=== PATIENT | male | born 1970 | race Caucasian/White ===

== ENCOUNTER → 2019-10-12 10:13 | Outpatient (BNVA) | payer OTHER, SELFPAY | PROVIDERS: Family Provider Nurse Practitioner Family; PCP Registered Nurse; Visit Provider Registered Nurse | DX: Z00.00 Encounter for general adult medical examination without abnormal findings (principal); Z13.220 Encounter for screening for lipoid disorders; Z12.11 Encounter for screening for malignant neoplasm of colon; E03.9 Hypothyroidism, unspecified; E07.9 Disorder of thyroid, unspecified | CPT/HCPCS: 36415; 80053; 80061; 84443; 85025 ==

== ENCOUNTER 2022-08-29 14:31 | Emergency (ER) | payer OTHER, SELFPAY ==
[2022-08-29 14:35] VITALS: BP 148/89; PULSE 73; RESP 16; TEMP 36.3; O2SAT 99
--- NOTE | 2022-08-29 15:30 | CTR_ITS ---
PROCEDURE INFORMATION: Exam: CT Head Without Contrast Exam date and time: 08/29/2022 3:37 PM Age: 51 years old Clinical indication: Weakness, extremity; Right; Additional info: Right-sided weakness, intermittent TECHNIQUE: Imaging protocol: Computed tomography of the head without contrast. Radiation optimization: All CT scans at this facility use at least one of these dose optimization techniques: automated exposure control; mA and/or kV adjustment per patient size (includes targeted exams where dose is matched to clinical indication); or iterative reconstruction. COMPARISON: No relevant prior studies available. RADIATION DOSE METRICS: Total DLP (mGy-cm): 1133.98 FINDINGS: Brain: Normal. No hemorrhage. Unremarkable white matter. No mass effect. Cerebral ventricles: No ventriculomegaly. Paranasal sinuses: There is mild ethmoid sinus disease. Mastoid air cells: Visualized mastoid air cells are well aerated. Bones/joints: Unremarkable. No acute fracture. Soft tissues: Unremarkable. CT/CT head wo con* [id number] IMPRESSION: There are no acute concerning abnormalities.
--- NOTE | 2022-08-29 15:30 | ED_ITS ---
HPI - Neuro Symptoms/Deficit General: Chief Complaint: Neuro Symptoms/Deficit Stated Complaint: Weakness in right side of body Time Seen by Provider: 08/29/22 15:23 Source: patient Mode of arrival: ambulatory History of Present Illness: 51-year-old male presents emergency room complaining of weakness on the right side of his body. States he had an episode yesterday that lasted about 3 minutes and then another episode today. By time he arrives here all of his symptoms have resolved he generally feels little bit weak and unsteady on his feet he is using a walking stick that he normally does not use. He has not had any chest pain. No recent head trauma is not on anticoagulants. He reports his right arm and leg and face were very weak with both of these episodes both were brief and resolved spontaneously. Onset (ago): day(s) (1) Location: right face, right arm and right leg Severity: moderate Quality: weak, numb and tingling Relieving factors: none Exacerbating factors: none Context: sudden onset Associated symptoms: Reports tingling; Deny chest pain, cough, diaphoresis, fevers/chills, headache(s), anorexia, malaise, nausea, seizures, short of breath, syncope, vertigo, vomiting or wea kness Treatments Prior to Arrival: none Review of Systems Const: Denies: fever(s), chills, fatigue, malaise or diaphoresis ENMT: Denies: throat pain, ear or mastoid pain, nasal discharge or nasal congestion Card: Denies: chest pain or syncope Resp: Denies: dyspnea, productive cough or non-productive cough GI: Denies: abdominal pain, nausea or vomiting : Denies: flank pain, dysuria, urinary frequency or urinary urgency Skin/Breast: Denies: rash or pruritus Neuro: Denies: headache(s) or vertigo PFS ED PFSH: Medical History Hypothyroid Social History Alcohol intake: never NIH stroke score NIHSS: Level Of Consciousness - 1a: 0 Level Of Consciousness Questions - 1b: Both Correct Level Of Consciousness Commands - 1c: Both Correct Best Gaze - 2: Normal Visual Lima - 3: No Visual Loss Facial Palsy - 4: Normal Motor Arm Right - 5: No Drift Motor Arm Left - 5: No Drift Motor Leg Right - 6: No Drift Motor Leg Left - 6: No Drift Limb Ataxia - 7: Absent Sensory - 8: Normal Best Language - 9: No Aphasia Dysarthia - 10: Normal Extinction And Inattention - 11: 0 Score: Total Score: 0 Physical Exam Const: COMMON NORMALS: no acute distress GENERAL APPEARANCE: cooperative and comfortable ORIENTATION/CONSCIOUSNESS: Yes awake, Yes oriented to person, Yes oriented to place and Yes oriented to time HENMT: COMMON NORMALS: normocephalic, atraumatic, hearing grossly normal bilaterally, external ears normal, EAC's normal, TM's normal bilaterally, Normal nasal mucous membranes and turbinates present, moist oral mucous membranes and oropharynx normal HEAD & SCALP: normocephalic and atraumatic NOSE: Normal nasal mucous membranes and turbinates present EXTERNAL EAR: Yes external ears normal EXTERNAL AUDITORY CANAL: EAC's normal TYMPANIC MEMBRANE: TM's normal bilaterally Eye: COMMON NORMALS: Equal, round and reactive pupils present, EOMs intact bilaterally, conjunctivae normal and no scleral icterus CONJUNCTIVA: Yes conjunctivae normal PUPIL: Yes Equal, round and reactive pupils present Neck/C-Spine: COMMON NORMALS: full ROM, no lymphadenopathy, supple and no JVD Lymph: LYMPHATIC: no lymphadenopathy noted and no lymphedema noted Resp: COMMON NORMALS: normal respiratory effort, No retractions, No use of accessory muscles and clear to auscultation bilaterally AUSCULTATION: clear to auscultation bilaterally Cardio: COMMON NORMALS: no JVD, regular rate, regular rhythm and No murmurs present (Cardio) RATE: regular rate RHYTHM: regular rhythm GI: COMMON NORMALS: Soft to palpation and No hepatosplenomegaly present AUSCULTATION: Yes normoactive bowel sounds PALPATION: Yes Soft to palpation, No Tenderness to palpation present (GI), No Guarding due to palpation present (GI) and Yes No hepatosplenomegaly present Extremity: COMMON NORMALS: normal to inspection, capillary refill normal, no clubbing, cyanosis or edema, no calf tenderness and no pedal edema Neuro: SENSORIUM/ORIENTATION: Yes oriented to person, Yes oriented to place and Yes oriented to time OTHER: Romberg [id number] and rapid alternating movements all normal Skin: COMMON NORMALS: no rashes or lesions noted GENERAL SKIN EXAM: no rashes or lesions noted Course Vital Signs: Vital signs: Vital Signs Temperature 97.4 F L 08/29/22 14:35 Pulse Rate 62 08/29/22 17:00 Respiratory Rate 16 08/29/22 14:35 Blood Pressure 126/81 08/29/22 17:00 Pulse Oximetry 96 08/29/22 17:00 Oxygen Delivery Me thod 08/29/22 17:00 MDM - Neuro Symptoms/Deficit Medical Decision Making Exam is negative NIH is negative. She has no focal deficit at this time we will start him on Plavix aspirin and atorvastatin set him up for outpatient MRI echocardiogram carotid and 48-hour Holter. Return if is further problems. Medical Records I reviewed the patient's medical records. Lab Data I reviewed the patient's lab results. 08/29/22 16:26 08/29/22 16:[address] 08/29/22 15:30 IMPRESSION: There are no acute concerning abnormalities. Laboratory Results WBC 6.4 10^3/uL (4.0-10.0) 08/29/22 16:26 RBC 4.92 10^6/uL (4.1-5.3) 08/29/22 16:26 Hgb 15.5 g/dL (11.7-16.6) 08/29/22 16:26 Hct 44.7 % (42.0-52.0) 08/29/22 16:26 MCV 90.9 fl (80-94) 08/29/22 16:26 MCH 31.5 pg (28.0-34.0) 08/29/22 16:26 MCHC 34.7 g/dL (30.0-36.0) 08/29/22 16:26 RDW 12.6 % (12.1-15.1) 08/29/22 16:26 Plt Count 187 10^3/cmm (130-400) 08/29/22 16:26 MPV 10.0 fL (7.4-10.4) 08/29/22 16:26 Neut % (Auto) 48.4 % 08/29/22 16:26 Lymph % (Auto) 40.8 % 08/29/22 16:26 Roberts % (Auto) 6.3 % 08/29/22 16:26 Eos % (Auto) 4.1 % 08/29/22 16:26 Baso % (Auto) 0.2 % 08/29/22 16: Neut # (Auto) 3.10 10^3/uL (1.8-7.7) 08/29/22 16:26 Lymph # (Auto) 2.6 10^3/uL (0.8-4.8) 08/29/22 16:26 Roberts # (Auto) 0.4 10^3/uL (0.2-0.9) 08/29/22 16:26 Eos # (Auto) 0.3 10^3/uL (0.0-0.8) 08/29/22 16: Baso # (Auto) 0.0 10^3/uL (0.0-0.1) 08/29/22 16:26 Nucleated RBC % (auto) 0 % 08/29/22 16: Nucleated RBCs # 0.0 /100WBC 08/29/22 16:26 Sodium 139 mmol/L (136-145) 08/29/22 16:26 Potassium 3.7 mmol/L (3.5-5.1) 08/29/22 16:26 Chloride 103 mmol/L (98-107) 08/29/22 16:26 Carbon Dioxide 26 mmol/L (22-29) 08/29/22 16:26 Anion Gap 13.7 (5-19) 08/29/22 16:26 BUN 16 mg/dL (6-20) 08/29/22 16:26 Creatinine 0.8 mg/dL (0.7-1.2) 08/29/22 16:26 GFR Calculation 101.5 mL/min (90-130) 08/29/22 16:26 Glucose 132 mg/dL (65-115) H 08/29/22 16:26 Calculated Osmolality 291 mOsm/kg (285-295) 08/29/22 16:26 Calcium 9.8 mg/dL (8.5-10.5) 08/29/22 16:26 Discharge Plan Discharge Patient Disposition: Home Clinical Impression: Transient cerebral ischemia Condition: Stable Prescriptions: New clopidogrel 75 mg tablet 75 mg PO DAILY Qty: 30 0RF atorvastatin 40 mg tablet 40 mg PO DAILY Qty: 30 0RF aspirin 81 mg tablet,delayed release (DR/EC) 81 mg PO DAILY Qty: 30 0RF Discharge Orders: Discharge ED (Routine); Ordered 08/29/22 Ordered By: Keegan Romeo Referrals: Gladys Dumont FNP [Primary Care Provider] - Discharge Diet: Usual diet Discharge Activity: Resume usual activity Patient Instructions: Opioid Safety, Pain Management Activity Restrictions/Additional Instructions: You were seen today for transient ischemic attack. Your exam and your CT of your head was negative. Recommend that you start taking aspirin daily along with atorvastatin and clopidogrel. Case management make arrangements for an outpatient MRI carotid duplex Holter monitor and echocardiogram. Coding Level of Care Code ED Pmp Project Manager for Chg Fwd Exam Comprehensive
[2022-08-29 15:46] VITALS: PULSE 67; O2SAT 96
--- NOTE | 2022-08-29 15:46 | ECG_ITS ---
[facility] Test Date: 2022-08-29 Pat Name: Hay Canales Department: Room: Gender: Male Commutator Tester: : [id number] Requested By: Keegan Peterson Order Number: [id number] Papi MD: Chris Herrera M.D. Measurements Intervals [place] Rate: 62 P: 71 MT: 169 QRS: 77 QRSD: 108 T: 49 QT: 380 QTc: 386 Interpretive Statements SINUS RHYTHM INCOMPLETE RIGHT BUNDLE BRANCH BLOCK [90+ ms QRS DURATION, TERMINAL R IN V1/V2, 40+ ms S IN I/aVL/V4/V5/V6] No previous ECG available for comparison Electronically Signed On 08-29-2022 19:43:26 BERRY GROWER by Chris Herrera M.D. [id number]
[2022-08-29 16:00] VITALS: BP 146/98; PULSE 69; O2SAT 97
[2022-08-29 16:30] VITALS: BP 126/81; PULSE 62; O2SAT 96
[2022-08-29 16:31] LABS: Basophils % 0.2 %; Eosinophils # 0.3 10^3/uL (0.0-0.8); Eosinophils % 4.1 %; Hematocrit 44.7 % (42.0-52.0); Hemoglobin 15.5 g/dL (11.7-16.6); Lymphocytes # 2.6 10^3/uL (0.8-4.8); Lymphocytes % 40.8 %; Mean Corpuscular HGB Conc 34.7 g/dL (30.0-36.0); Mean Corpuscular Hemoglobin 31.5 pg (28.0-34.0); Mean Corpuscular Volume 90.9 fl (80-94); Monocytes # 0.4 10^3/uL (0.2-0.9); Monocytes % 6.3 %; Neutrophils % 48.4 %; Nucleated Red Blood Cells % 0 %; Platelet Count 187 10^3/cmm (130-400); Red Blood Count 4.92 10^6/uL (4.1-5.3); Red Cell Distribution Width 12.6 % (12.1-15.1); White Blood Count 6.4 10^3/uL (4.0-10.0)
[2022-08-29 16:49] LABS: Anion Gap 13.7 (5-19); Blood Urea Nitrogen 16 mg/dL (6-20); Calcium 9.8 mg/dL (8.5-10.5); Carbon Dioxide 26 mmol/L (22-29); Chloride 103 mmol/L (98-107); Glomerular Filtration Rate 101.5 mL/min (90-130); Glucose 132 mg/dL (65-115); Osmolality Calculated 291 mOsm/kg (285-295); Potassium 3.7 mmol/L (3.5-5.1); Sodium 139 mmol/L (136-145)
[2022-08-29 17:00] VITALS: BP 126/81; PULSE 62; O2SAT 96
--- NOTE | 2022-08-31 08:07 | DCPLANNER ---
Addendum entered by Pilar Kaur 12/13/22 08:10: Patient had an outpatient MRI scheduled- patient attended appointment Patient had an appointment at heart care for a 48 hour halter monitor - patient did attend appointment Patient had a carotid duplex scheduled - patient did not attend appointment Patient had an echo scheduled - patient did not attend appointment Addendum entered by Pilar Kaur 09/02/22 11:39: Patient has a 48 hour halter monitor scheduled for Wednesday, September 07, 2022 at 10:00. Clinic will call patient with appointment information. Original Note: house manager had message to schedule an out patient MRI, echo cardiogram, carotid duplex and a 48 hour halter monitor. house manager faxed signed orders to centralized scheduling and heart care, who will call patient with appointment information.
== END 2022-08-29 17:18 | disposition home or self-care (01) ==
PROVIDERS: Emergency Provider Family Medicine; PCP Registered Nurse
DX: G45.9 Transient cerebral ischemic attack, unspecified (principal)
CPT/HCPCS: 36415; 70450; 80048; 85025; 93005; 99284

== ENCOUNTER → 2022-09-01 11:36 | Outpatient (BNVA) | payer OTHER, SELFPAY | PROVIDERS: PCP Registered Nurse; Visit Provider Registered Nurse | DX: G45.9 Transient cerebral ischemic attack, unspecified (principal); E78.5 Hyperlipidemia, unspecified | CPT/HCPCS: 80053; 80061; 84443; 85025 ==